=== PATIENT | male | born 2005 | race Two or more races ===

== ENCOUNTER 2025-01-13 17:19 | Emergency (ER) | payer MEDICAID, SELFPAY ==
[2025-01-13 17:20] VITALS: BMI 34.8
[2025-01-13 18:02] VITALS: BP 141/86; PULSE 71; RESP 18; TEMP 37; O2SAT 100
--- NOTE | 2025-01-13 18:09 | EDNOTE_ITS ---
<Statement entered by Aggie Villalobos MD - 01/14/25 18:31> As co-signing physician, I was present and available for consult prn. I concur with the plan and care as documented by the midlevel provider. ED Wound/Laceration-RME/HPI General Chief Complaint: Wound/Laceration Stated Complaint: LAC TO R) THUMB 30 MIN AGO Time Seen by Provider: 01/13/25 18:11 Arrival date/time: 01/13/25 17:19 RME / HPI RME / HPI narrative: 19-year-old male patient was brought in for evaluation regarding tongue laceration. Incident happened 30 minutes prior to ER visit with a knife resulting into 2 cm gaping laceration, currently is active bleeding. Vaccination for tetanus is unknown Related Data Allergies Allergy/AdvReac Type Severity Reaction Status Date / Time No Known Allergies Allergy Unknown Uncoded 01/13/25 17:22 Review of Systems Review of Systems Narrative Review of Systems: Review of system reviewed and within normal limits except mentioned in HPI ED Exam Narrative Physical exam: VITAL SIGNS: Reviewed. GENERAL APPEARANCE: Alert and interactive, follows commands, no acute distress, HEAD AND FACE: Non-traumatic. ENT: PERRL, pink conjunctivitis, eyelid no trauma, Mucous membrane moist. NECK: Supple, nontender, no nuchal rigidity. CHEST: No tenderness, no crepitus, no paradoxical movement, no retractions. LUNGS: Clear, well ventilated, symmetric, no rales, no wheezing, no ronchi, no stridor, good breath sounds bilaterally. HEART: Regular rate, regular rhythm, no murmur, no gallops. ABDOMEN: Soft, positive bowel sounds, nondistended, no guarding, nontender, no rebound, no masses, RECTAL: Deferred. GENITAL: Deferred. NEUROLOGICAL: Gross motor function intact sensory function intact, Appropriate for age. MUSCULOSKELETAL: low back nontender, full range of motion. EXTREMITIES: Nontender, full range of motion. SKIN: Color pink, dry, no rash, +2 cm gaping laceration, left thumb longitudinal, active bleeding noted full range of motion of the thumb, no abrasions, no contusions. LYMPHATICS: Deferred. Course Quality Measures none Orders Category Date Time Status Ibuprofen Tab [Motrin Tab] Med 01/13/25 18:08 Discontinued 800 mg PO X1 ONE Lidocaine 1% 20 ml [Xylocaine 1% 20 ML] Med 01/13/25 18:08 Discontinued 10 ml INFL X1 ONE TET,DIP/PERT AC (Adult)-Tdap [Boostrix Adult (Tdap) Med 01/13/25 18:08 Discontinued Vacc] 0.5 ml IMI .ONCE ONE Vital Signs Vital signs: Vital Signs Temperature 98.6 F 01/13/25 18:02 Pulse Rate 71 01/13/25 18:02 Respiratory Rate 18 01/13/25 18:02 Blood Pressure 141/86 H 01/13/25 18:02 Pulse Oximetry (%) 100 01/13/25 18:02 Oxygen Delivery Method Room Air 01/13/25 18:02 Procedures -ED Laceration Laceration 1: Site: other (Thumb) Size (cm): 2 Description: linear Depth: simple, single layer Local Anesthetic: lidocaine 1% Amount of anesthesia used (mL): 3 Pre-repair: wound explored and irrigated extensively Skin layer closed with: nylon Suture size (cm): 5-0 Number of sutures: 3 Technique: simple, interrupted Wound / Laceration MDM Narrative MDM Narrative:: 19-year-old male patient was brought in for evaluation regarding tongue laceration. Incident happened 30 minutes prior to ER visit with a knife resulting into 2 cm gaping laceration, currently is active bleeding. Vaccination for tetanus is unknown Repair and suturing was done by me see procedure notes Patient received Boostrix and Motrin Patient data External records reviewed:: None Clinical information provided by:: patient Social determinants that could affect healthcare access:: none Patient has the following chronic illnesses:: None How is presenting disease/condition affected by chronic disease/condition?: no chronic disease Evaluation data The following diagnostics were reviewed and interpreted by me:: lab results Lab and/or radiology exams considered but not ordered:: None Interpretation Summary: None Medications / Prescriptions Medications or Prescriptions considered but not ordered:: None Medication administrations:: Medication Administration History Discontinued Medications Diphtheria/Tetanus/Acell Pertussis (Diphth,Pertuss(Acell),Tet Vac 0.5 Ml Syr- Adult) 0.5 ml IMi .ONCE ONE Stop: 01/13/25 18:09 Last Admin: 01/13/25 18:42 Dose: 0.5 ml Documented By: CEM Ibuprofen (Ibuprofen Tab 400 Mg Tablet) 800 mg PO X1 ONE Stop: 01/13/25 18:09 Last Admin: 01/13/25 18:39 Dose: 800 mg Documented By: CEM Lidocaine HCl (Lidocaine Hcl 1% 20 Ml Vial) 10 ml INFL X1 ONE Stop: 01/13/25 18:09 Last Admin: 01/13/25 18:41 Dose: 10 ml Documented By: CEM Comments: used by provider Boostrix and Motrin Consultations Consultation(s) initiated? (list below): No Diagnosis Wound Differential Diagnosis: laceration, abrasion and avulsion of skin Most likely diagnosis given after review of the tests above:: Thumb laceration Admission Indicated Admission indicated?: not indicated Admission Request Was there a request for admission?: No Disposition Plan Disposition Plan: Discharge Discharge Attestation Discharge Attestation: The patient and all family members were given an opportunity to ask questions and understood the discharge instructions. Discharge instructions specifically effects, indications for sooner follow up or return to the emergency department, and the expected course of current diagnosis. Patient condition: Stable Discharge Plan Plan Patient Disposition: HOME (Self Care) Discharge Disposition comment: Stable Prescriptions/Referrals Referrals: Aime Farias MD [Primary Care Provider] - In 1 week Problem List Clinical Impression: Finger laceration Patient/Caregiver Discharge Instructions Discharge Activity: activity as tolerated Education Materials: ED Laceration: All Closures Additional Instructions: Thank you for the opportunity for serving you today. You are stable for discha rged . You are advised to: Follow-up with your PCP in 1 to 2 days Return to ED for worsening of symptoms Increase oral fluids Take [id number] Tylenol Motrin as needed for pain Daily dressing with Neosporin as needed For removal of sutures in 10 days Print Language: Urdu Stand Alone Forms: [facility]ina Award Info., Patient Portal Info Letter
[2025-01-13] MEDS: IBUPROFEN TAB 400 MG TABLET 800 MG PO (18:39)
[2025-01-13] MEDS: LIDOCAINE HCL 1% 20 ML VIAL 10 ML INFL (18:41)
[2025-01-13] MEDS: DIPHTH,PERTUSS(ACELL),TET VAC 0.5 ML SYR- ADULT IMi (18:42)
== END 2025-01-13 19:23 | disposition home or self-care (01) ==
PROVIDERS: Emergency Provider Emergency Medicine; PCP Family Medicine
DX: S61.011A Laceration without foreign body of right thumb without damage to nail, initial encounter (principal); W26.0XXA Contact with knife, initial encounter
CPT/HCPCS: 12001; 90471; 90715; 99283; J3490; A9270